=== PATIENT | male | born 1990 | race Caucasian/White ===

== ENCOUNTER 2017-07-03 20:04 | Emergency (ER) | payer MEDICAID, OTHER ==
[2017-07-03] MEDS: DIPHTH/TET/ACEL PERTUSS (ADULT) 0.5 ML VIAL IM* (21:03)
[2017-07-03] MEDS: LIDOCAINE 2%/EPI MPF (SDV) 20 ML VIAL INJ (21:05)
== END 2017-07-03 23:03 | disposition home or self-care (01) ==
LOC: FTE 20:04
DX: S81.011A Laceration without foreign body, right knee, initial encounter (principal); W22.8XXA Striking against or struck by other objects, initial encounter; Y92.9 Unspecified place or not applicable; Z23 Encounter for immunization
CPT/HCPCS: 12004; 90471; 90715; 99283-25